=== PATIENT | male | born 1975 | race Caucasian/White ===

== ENCOUNTER 2016-10-13 01:52 | Emergency (ER) | payer SELFPAY | END 2016-10-13 02:06 | disposition home or self-care (01) | LOC: ER 01:52 | DX: G56.03 Carpal tunnel syndrome, bilateral upper limbs (principal); F17.210 Nicotine dependence, cigarettes, uncomplicated; Z88.0 Allergy status to penicillin; Z88.5 Allergy status to narcotic agent | CPT/HCPCS: 99284 ==